=== PATIENT | male | born 1955 | race Caucasian/White ===

== ENCOUNTER 2020-08-03 10:30 | Outpatient (REF) | payer MEDICARE, SELFPAY ==
[2020-08-03 11:34] LABS: Estimated Average Glucose 97 mg/dL
[2020-08-03 11:45] LABS: Alanine Aminotransferase 27 U/L (0-40); Albumin Level 4.2 g/dL (3.5-5.0); Alkaline Phosphatase 52 U/L (39-117); Aspartate Amino Transferase 21 U/L (5-37); Bilirubin Direct 0.2 mg/dL (0.0-0.5); Bilirubin Total 0.6 mg/dL (0.0-1.0); Cholesterol 181 mg/dL; Glucose Fasting 102 mg/dL (60-99); HDL Cholesterol 59 mg/dL; LDL Cholesterol Calculated 111 mg/dl; Total Protein 7.2 g/dL (6.5-8.0); Triglycerides 58 mg/dL
[2020-08-03 13:31] LABS: Reflex LDLD? No
== END 2020-08-03 10:31 | disposition home or self-care (01) ==
LOC: HO.LNP 10:30
PROVIDERS: Visit Provider Internal Medicine
DX: R73.03 Prediabetes (principal); E78.00 Pure hypercholesterolemia, unspecified
CPT/HCPCS: 80061; 80076; 82947; 83036

== ENCOUNTER 2021-02-08 10:30 | Outpatient (REF) | payer MEDICARE, SELFPAY ==
[2021-02-08 10:33] LABS: MANUAL DIFF FLAG NO
[2021-02-08 11:14] LABS: Basophils Absolute Auto 0.1 X10*3/uL (0.0-0.2); Basophils Percent Auto 1.3 % (0-2); Eosinophils Absolute Auto 0.8 X10*3/uL (0.0-0.4); Eosinophils Percent Auto 7.5 % (0-4); Hematocrit 48.7 % (42-52); Hemoglobin 16.8 g/dl (14.0-18.0); Imm Gran Abs Auto 0.05 X10*3/uL (0.00-0.03); Imm Gran Pct Auto 0.5 % (0.0-0.4); Lymphocytes Absolute Auto 1.8 X10*3/uL (1.2-4.9); Lymphocytes Percent Auto 17.5 % (20-40); Mean Corpuscular HGB Conc 34.5 g/dl (31.0-36.0); Mean Corpuscular Hemoglobin 32.4 pg (27.0-33.0); Mean Corpuscular Volume 93.8 fL (80-98); Mean Platelet Volume 9.7 fL (9.4-12.4); Monocytes Absolute Auto 1.2 X10*3/uL (0.1-1.2); Neutrophils Absolute Auto 6.1 X10*3/uL (2.0-8.3); Neutrophils Percent Auto 61.2 % (45-73); Platelet Count 258 X10*3/uL (160-400); Red Blood Count 5.19 X10*6/uL (4.60-5.80); Red Cell Distribution Width 11.4 % (11.0-16.0)
[2021-02-08 11:22] LABS: Estimated Average Glucose 97 mg/dL
[2021-02-08 11:31] LABS: Alanine Aminotransferase 35 U/L (0-40); Albumin Level 4.3 g/dL (3.5-5.0); Alkaline Phosphatase 54 U/L (39-117); Anion Gap 14 (12-20); Aspartate Amino Transferase 26 U/L (5-37); Bilirubin Total 1.1 mg/dL (0.0-1.0); Blood Urea Nitrogen 9 mg/dL (9-16); Calcium 9.5 mg/dL (8.4-10.2); Carbon Dioxide 25 mmol/L (22-29); Chloride 105 mmol/L (96-108); Cholesterol 231 mg/dL; Estimated Glomerular Filt Rate > 60; Glucose Fasting 125 mg/dL (60-99); HDL Cholesterol 69 mg/dL; LDL Cholesterol Calculated 153 mg/dl; Potassium 4.2 mmol/L (3.3-5.1); Sodium 140 mmol/L (135-145); Total Protein 7.3 g/dL (6.5-8.0); Triglycerides 49 mg/dL
[2021-02-08 11:43] LABS: Appearance Urine CLEAR; Color Urine YELLOW; Glucose Urine UA NEG (NEG); Leukocyte Esterase Urine NEG (NEG); Nitrite Urine NEG (NEG); Urine Blood TRACE (NEG); Urine Ketones 40 MG/DL (NEG); Urine Protein NEG (NEG-TRACE)
[2021-02-08 11:52] LABS: PSA,Total (Free>4and<10) 1.19 ng/mL (0.00-4.00)
[2021-02-08 12:02] LABS: Squamous Epithelial Cell Urine TRACE /LPF
[2021-02-08 12:03] LABS: RBC Urine 0 /HPF (0); WBC Urine 0 /HPF (0-4)
[2021-02-08 12:28] LABS: Creatinine Urine 208.14 mg/dL; Microalbum/Creatinine Ratio Ur 7.2 ug/mg cr
== END 2021-02-08 10:31 | disposition home or self-care (01) ==
LOC: HO.LNP 10:30
PROVIDERS: Visit Provider Internal Medicine
DX: Z12.5 Encounter for screening for malignant neoplasm of prostate (principal); R73.03 Prediabetes; E78.00 Pure hypercholesterolemia, unspecified; I10 Essential (primary) hypertension
CPT/HCPCS: 80053; 80061; 81001; 81003; 82043; 83036; 84153; 85025

== ENCOUNTER 2022-02-09 11:27 | Outpatient (REF) | payer MEDICARE, SELFPAY ==
[2022-02-09 11:32] LABS: MANUAL DIFF FLAG NO
[2022-02-09 11:48] LABS: Appearance Urine Clear; Color Urine Yellow; Glucose Urine UA Negative (Negative); Leukocyte Esterase Urine Negative (Negative); Nitrite Urine Negative (Negative); PH 6.5 (5.0-9.0); Specific Gravity - Urine 1.015 (1.005-1.025); Urine Blood Negative (Negative); Urine Ketones Trace mg/dL (Negative); Urine Protein Negative (Neg-Trace)
[2022-02-09 11:52] LABS: Bacteria Urine None Seen (None Seen); Hyaline Casts Urine 0-2 /LPF (0-2); RBC Urine 0-2 /HPF (0-2); Squamous Epithelial Cell Urine 0-2 /HPF (0-2); WBC Urine 0-5 /HPF (0-5)
[2022-02-09 11:54] LABS: Alanine Aminotransferase 33 U/L (0-40); Albumin Level 4.3 g/dL (3.5-5.0); Alkaline Phosphatase 49 U/L (39-117); Anion Gap 14 (12-20); Aspartate Amino Transferase 27 U/L (5-37); Bilirubin Total 1.1 mg/dL (0.0-1.0); Blood Urea Nitrogen 9 mg/dL (9-16); Calcium 9.2 mg/dL (8.4-10.2); Carbon Dioxide 26 mmol/L (22-29); Chloride 104 mmol/L (96-108); Cholesterol 228 mg/dL; Estimated Average Glucose 100 mg/dL; Estimated Glomerular Filt Rate > 60; Glucose Fasting 133 mg/dL (60-99); HDL Cholesterol 67 mg/dL; Hemoglobin A1c % 5.1 %; LDL Cholesterol Calculated 153 mg/dl; Potassium 3.8 mmol/L (3.3-5.1); Sodium 140 mmol/L (135-145); Total Protein 7.3 g/dL (6.5-8.0); Triglycerides 43 mg/dL
[2022-02-09 11:56] LABS: Basophils Absolute Auto 0.1 X10*3/uL (0.0-0.2); Basophils Percent Auto 1.1 % (0-2); Eosinophils Absolute Auto 0.7 X10*3/uL (0.0-0.4); Eosinophils Percent Auto 6.9 % (0-4); Hematocrit 46.8 % (42.0-52.0); Hemoglobin 16.5 g/dl (14.0-18.0); Imm Gran Abs Auto 0.04 X10*3/uL (0.00-0.03); Imm Gran Pct Auto 0.4 % (0.0-0.4); Lymphocytes Percent Auto 19.4 % (20-40); Mean Corpuscular HGB Conc 35.3 g/dl (31.0-36.0); Mean Corpuscular Hemoglobin 33.2 pg (27.0-33.0); Mean Corpuscular Volume 94.2 fL (80.0-98.0); Mean Platelet Volume 9.8 fL (9.4-12.4); Monocytes Absolute Auto 1.3 X10*3/uL (0.1-1.2); Monocytes Percent Auto 12.6 % (2-11); Neutrophils Absolute Auto 6.3 x10*3/uL (2.0-8.3); Neutrophils Percent Auto 59.6 % (45-73); Platelet Count 268 X10*3/uL (160-400); Red Blood Count 4.97 X10*6/uL (4.60-5.80); Red Cell Distribution Width 11.3 % (11.0-16.0); White Blood Count 10.5 X10*3/uL (4.8-10.8)
[2022-02-09 12:15] LABS: PSA,Total (Free>4and<10) 0.66 ng/mL (0.00-4.00)
[2022-02-09 13:21] LABS: Creatinine Urine 153.29 mg/dL; Microalbum/Creatinine Ratio Ur 6.5 ug/mg cr
== END 2022-02-09 11:28 | disposition home or self-care (01) ==
LOC: HO.LNP 11:27
PROVIDERS: Visit Provider Internal Medicine
DX: Z12.5 Encounter for screening for malignant neoplasm of prostate (principal); I10 Essential (primary) hypertension; E78.00 Pure hypercholesterolemia, unspecified; R73.03 Prediabetes
CPT/HCPCS: 80053; 80061; 81001; 82043; 83036; 84153; 85025

== ENCOUNTER 2023-02-13 11:59 | Outpatient (REF) | payer MEDICARE, SELFPAY | END 2023-02-13 12:00 | disposition home or self-care (01) | LOC: HO.LNP 11:59 | PROVIDERS: Visit Provider Internal Medicine | DX: Z12.5 Encounter for screening for malignant neoplasm of prostate (principal); I10 Essential (primary) hypertension; E78.00 Pure hypercholesterolemia, unspecified; R73.03 Prediabetes | CPT/HCPCS: 80053; 80061; 81001; 82043; 82570; 83036; 84153; 85025 ==

== ENCOUNTER 2023-03-15 12:06 | Outpatient (REF) | payer MEDICARE, SELFPAY ==
[2023-03-15 12:27] LABS: Appearance Urine Clear; Color Urine Yellow; Glucose Urine UA Negative (Negative); Leukocyte Esterase Urine Negative (Negative); Nitrite Urine Negative (Negative); Specific Gravity - Urine 1.015 (1.005-1.025); Urine Blood Negative (Negative); Urine Ketones 15 mg/dL (Negative); Urine Protein Negative (Neg-Trace)
[2023-03-15 12:30] LABS: Bacteria Urine None Seen (None Seen); Hyaline Casts Urine 0-2 /LPF (0-2); RBC Urine 0-2 /HPF (0-2); Squamous Epithelial Cell Urine 0-2 /HPF (0-2); WBC Urine 0-5 /HPF (0-5)
== END 2023-03-15 12:07 | disposition home or self-care (01) ==
LOC: HO.LNP 12:06
PROVIDERS: Visit Provider Internal Medicine
DX: R31.9 Hematuria, unspecified (principal)
CPT/HCPCS: 81001

== ENCOUNTER 2024-03-21 11:03 | Outpatient (REF) | payer MEDICARE, SELFPAY ==
[2024-03-21 11:06] LABS: MANUAL DIFF FLAG NO
[2024-03-21 11:28] LABS: Basophils Absolute Auto 0.1 X10*3/uL (0.0-0.2); Basophils Percent Auto 1.2 % (0-2); Eosinophils Absolute Auto 0.5 X10*3/uL (0.0-0.4); Eosinophils Percent Auto 5.1 % (0-4); Hematocrit 47.3 % (42.0-52.0); Hemoglobin 16.6 g/dl (14.0-18.0); Imm Gran Abs Auto 0.05 X10*3/uL (0.00-0.03); Imm Gran Pct Auto 0.5 % (0.0-0.4); Lymphocytes Absolute Auto 1.8 X10*3/uL (1.2-4.9); Lymphocytes Percent Auto 18.8 % (20-40); Mean Corpuscular HGB Conc 35.1 g/dl (31.0-36.0); Mean Corpuscular Hemoglobin 33.5 pg (27.0-33.0); Mean Corpuscular Volume 95.4 fL (80.0-98.0); Mean Platelet Volume 9.6 fL (9.4-12.4); Monocytes Absolute Auto 1.3 X10*3/uL (0.1-1.2); Monocytes Percent Auto 13.7 % (2-11); Neutrophils Absolute Auto 5.7 x10*3/uL (2.0-8.3); Neutrophils Percent Auto 60.7 % (45-73); Platelet Count 233 X10*3/uL (160-400); Red Blood Count 4.96 X10*6/uL (4.60-5.80); Red Cell Distribution Width 11.5 % (11.0-16.0); White Blood Count 9.3 X10*3/uL (4.8-10.8)
[2024-03-21 11:31] LABS: Appearance Urine Clear; Color Urine Yellow; Glucose Urine UA Negative (Negative); Leukocyte Esterase Urine Negative (Negative); Nitrite Urine Negative (Negative); PH 6.5 (5.0-9.0); Specific Gravity - Urine 1.015 (1.005-1.025); Urine Blood Negative (Negative); Urine Ketones 40 mg/dL (Negative); Urine Protein Negative (Neg-Trace)
[2024-03-21 11:39] LABS: Bacteria Urine None Seen (None Seen); Hyaline Casts Urine 0-2 /LPF (0-2); RBC Urine 0-2 /HPF (0-2); Squamous Epithelial Cell Urine 0-2 /HPF (0-2); WBC Urine 0-5 /HPF (0-5)
[2024-03-21 12:05] LABS: PSA,Total (Free>4and<10) 0.44 ng/mL (0.00-4.00)
[2024-03-21 12:09] LABS: Alanine Aminotransferase 31 U/L (0-40); Albumin Level 4.1 g/dL (3.5-5.0); Alkaline Phosphatase 50 U/L (39-117); Anion Gap 12 (12-20); Aspartate Amino Transferase 27 U/L (5-37); Bilirubin Total 1.1 mg/dL (0.0-1.0); Blood Urea Nitrogen 11 mg/dL (9-16); Calcium 9.5 mg/dL (8.4-10.2); Carbon Dioxide 26 mmol/L (22-29); Chloride 101 mmol/L (96-108); Cholesterol 225 mg/dL (<200); Estimated Glomerular Filt Rate > 60; Glucose Fasting 120 mg/dL (60-99); HDL Cholesterol 66 mg/dL (>40); LDL Cholesterol Calculated 146 mg/dL (<100); Potassium 3.8 mmol/L (3.3-5.1); Sodium 135 mmol/L (135-145); Total Protein 7.1 g/dL (6.5-8.0); Triglycerides 69 mg/dL (<150)
[2024-03-21 12:14] LABS: Estimated Average Glucose 103 mg/dL; Hemoglobin A1C 171.5869 umol/L; Hemoglobin A1c % 5.2 % (<6.0); Total Hemoglobin (HGBA1C) 5153.2918 umol/L
[2024-03-21 12:19] LABS: Microalbum/Creatinine Ratio Ur 4.4 ug/mg cr (<30)
== END 2024-03-21 11:04 | disposition home or self-care (01) ==
LOC: HO.LNP 11:03
PROVIDERS: Visit Provider Internal Medicine
DX: I10 Essential (primary) hypertension (principal); R73.09 Other abnormal glucose; E78.00 Pure hypercholesterolemia, unspecified; Z12.5 Encounter for screening for malignant neoplasm of prostate
CPT/HCPCS: 80053; 80061; 81001; 82043; 82570; 83036; 84153; 85025

== ENCOUNTER 2024-09-19 10:36 | Outpatient (REF) | payer MEDICARE, SELFPAY ==
--- OUTSIDE RECORDS SUMMARY | 2024-09-19 11:06 | XMS_ITS ---
Author Organization David Ayala MD Address [address] [place], [place] [id number] Care Team Providers [employer] Worker Name Role Phone David Ayala Primary Care Provider Results Component Value Reference Range Notes Complete Blood Count Auto Di ff Reviewed date:03/21/2024 12:48:24 PM Interpretation: Performing Lab:[facility], [address] [place] [phone] Notes/Report: White Blood Count 9.3 4.8-10.8 X10*3/uL Red Blood Count 4.96 4.60-5.80 X10*6/uL Hemoglobin 16.6 14.0-18.0 g/dl Hematocrit 47.3 42.0-52.0 % Mean Corpuscular Volume 95.4 80.0-98.0 fL Mean Corpuscular Hemoglobin 33.5 27.0-33.0 pg Mean Corpuscular HGB Conc 35.1 31.0-36.0 g/dl Red Cell Distribution Width 11.5 11.0-16.0 % Platelet Count 233 160-400 X10*3/uL Mean Platelet Volume 9.6 9.4-12.4 fL Neutrophils Percent Auto 60.7 45-73 % Imm Gran Pct Auto 0.5 0.0-0.4 % Lymphocytes Percent Auto 18.8 20-40 % Monocytes Percent Auto 13.7 2-11 % Eosinophils Percent Auto 5.1 0-4 % Basophils Percent Auto 1.2 0-2 % NRBC Pct Auto 0.0 0.0-0.2 /100WBC Neutrophils Absolute Auto 5.7 2.0-8.3 x10*3/u L Imm Gran Abs Auto 0.05 0.00-0.03 X10*3/uL Lymphocytes Absolute Auto 1.8 1.2-4.9 X10*3/u L Monocytes Absolute Auto 1.3 0.1-1.2 X10*3/uL Eosinophils Absolute Auto 0.5 0.0-0.4 X10*3/u L Basophils Absolute Auto 0.1 0.0-0.2 X10*3/uL NRBC Abs Auto 0.000 0.0-0.012 X10*3/uL Comprehensive [place]. Panel Fa st Reviewed date:03/21/2024 12:19:10 PM Interpretation: Performing Lab:[facility], [address] [place] [phone] Notes/Report: Sodium 135 135-145 mmol/L Potassium 3.8 3.3-5.1 mmol/L Chloride 101 96-108 mmol/L Carbon Dioxide 26 22-29 mmol/L Anion Gap 12 12-20 Blood Urea Nitrogen 11 9-16 mg/dL Creatinine 0.77 0.5-1.4 mg/dL Estimated Glomerular Filt Rate > 60 Chronic Kidney Disease: Estimated GFR < 60 mL/min/1.73m2 Severe Kidney Disease: Estimated GFR < 15 mL/min/1.73m2 Glucose Fasting 120 60-99 mg/dL A fasting glucose from 100-125 mg/dl is considered impaired (pre-diabetes). Calcium 9.5 8.4-10.2 mg/dL Bilirubin Total 1.1 0.0-1.0 mg/dL Aspartate Amino Transferase 27 5-37 U/L Alanine Aminotransferase 31 0-40 U/L Total Protein 7.1 6.5-8.0 g/dL Albumin Level 4.1 3.5-5.0 g/dL Alkaline Phosphatase 50 39-117 U/L Lipid Panel Reviewed date:03/21/2024 12:17:01 PM Interpretation: Performing Lab:[facility], [address] [place] [phone] Notes/Report: Triglycerides 69 <150 mg/dL Desirable Triglyceride: less than 150 mg/dL Borderline High Triglyceride 150-199 mg/dL High Triglyceride: 200-499 mg/dL Very High Triglyceride: greater than or equal to 5OO mg/dL Cholesterol 225 <200 mg/dL Desirable Cholesterol: less than 200 mg/dL Borderline High Cholesterol: 200-239 mg/dL High Cholesterol: greater than 239 mg/dL LDL Cholesterol Calculated 146 <100 mg/dL Desirable LDL: less than 100 mg/dL Near Optimal/Above Optimal LDL: 110-129 mg/dL Borderline High LDL: 130-159 mg/dL High LDL: 160-189 mg/dL Very High LDL: greater than or equal to 190 mg/dL HDL Cholesterol 66 >40 mg/dL Desirable HDL: greater than 40 mg/dL Note: This HDL assay may give artificially low results in patients with liver disease. PSA,Total (Free>4and<10) Reviewed date:03/21/2024 12:18:48 PM Interpretation: Performing Lab:[address] [phone] Notes/Report: PSA,Total (Free>4and<10) 0.44 0.00-4.00 ng/mL A Free PSA was not performed: The percentage of Free PSA can be used to enhance the differentiation of prostate cancer from benign prostatic disease in subjects whose PSA levels are between 4.0 and 10.0 ng/mL. For subjects whose PSA levels are below 4.0 or above 10.0 ng/mL, the risk of prostate cancer is determined on the basis of the PSA alone. Therefore the % Free PSA is recommended only for those subjects whose PSA levels are between 4.0 and 10.0 ng/mL. PSA methodology: Campuzano Alinity i Chemiluminescent Microparticle Immunoassay (CMIA) Microalbumin, Random Reviewed date:03/21/2024 12:48:31 PM Interpretation: Performing Lab:[facility], [address] [place] [phone] Notes/Report: Creatinine Urine 111.70 Microalbumin Urine 5.0 Microalbum/Creatinine Ratio Ur 4.4 <30 ug/mg cr Albumin/Creatinine Ratio Reference Ranges: Normal: < 30 ug/mg creatinine Microalbuminuria: 30 - 300 ug/mg creatinine Clinical Albuminuria: > 300 ug/mg creatinine Hemoglobin A1c Reviewed date:03/21/2024 12:17:35 PM Interpretation: Performing Lab:[facility], [address] [place] [phone] Notes/Report: Hemoglobin A1c % 5.2 <6.0 % Hemoglobin A1C Reference Range Adults: 4.8 - 6.0 % Non diabetic: < 6.0 % Goal: < 7.0 % Additional Action Suggested: > 8.0 % Note: Hemoglobin A1c results are invalid for patients with abnormal amounts of HbF. Blood transfusions may impact the HbA1c concentration in the patient sample. Estimated Average Glucose 103 eAG = Estimated average glucose which is %A1C expressed as average glucose, using the formula of the [id number] Average Glucose study (ADAG), Diabetes Care, Vol.31,#8, 2007 UA ClnCatch+Micro w/rflx Cul t Reviewed date:03/21/2024 12:48:51 PM Interpretation: Performing Lab:[facility], [address] [place] [phone] Notes/Report: Urine, Clean Catch Color Urine Yellow Appearance Urine Clear PH 6.5 5.0-9.0 Glucose Urine UA Negative Negative mg/dL Urine Blood Negative Negative Specific [place] - Urine 1.015 1.005-1.025 Urine Protein Negative Neg-Trace mg/dL Urine Ketones 40 Negative mg/dL Nitrite Urine Negative Negative Leukocyte Esterase Urine Negative Negative RBC Urine 0-2 0-2 /HPF WBC Urine 0-5 0-5 /HPF Squamous Epithelial Cell Urine 0-2 0-2 /HPF Bacteria Urine None Seen None Seen Hyaline Casts Urine 0-2 0-2 /LPF REASON FOR VISIT yearly fasting labs Immunizations Vaccine Route Administration Date Status Comme nts Fluarix Quadrivalent - 150 IM Intramuscular 03/21/2024 Adm inistered Encounters Encounter Location Date Provider Diagnosis David Ayala MD [address] [place] [address] [address] [place], [place] [phone] 03/21/2024 David Ayala Essential hypertensi on I10 ; Encounter for immunization Z23 ; Prediabetes R73.09 and Pure hypercholesterolemia E78.00 Assessments Encounter Date Diagnosis (ICD Code) Assessment Notes Treatment Notes Treatment Clinical Notes Section Notes 03/21/2024 Essential hypertensi on (ICD-10 - I10) 03/21/2024 Encounter for immunization (ICD-10 - Z23) 03/21/2024 Prediabetes (ICD-10 - R73.09) 03/21/2024 Pure hypercholesterolemia (ICD-10 - E78.00) Plan Of Treatment Next Appt Details Provider Name:David Myrick ier, 09/26/2024 01:30:00 PM, [address], [address], [place], [phone], Provider Name:David Myrick torrier, 03/23/2025 07:45:00 AM, [address] [facility], [address], [place], [phone], Provider Name:David Myrick torrier, 03/30/2025 02:30:00 PM, [address] [facility], [address], [place], [phone], Progress Notes * George BR[birth year]ODOB:[birth year] (69 yo M)Acc No.[id number]:03/21/2024 Progress Note Patient:?George BRISENO Provider:?David Ayala MD :1955???Age:68 Y???Sex:Male Luis e:03/21/2024 Address:[address] [place], [place] [phone] Subjective: * Chief Complaints: * ???1. Yearly fasting labs. * Medical History:? Objective: * Vitals:? Assessment: * Assessment: 1.?Encounter for immunizatio n - Z23 (Primary)???2.?Essential hypertension - I10???3.?Prediabetes - R73.09???4.?Pure hypercholesterolemia - E78.00??? Plan: * Treatment: 2.?Prediabetes?LAB: Complete Blood Count Auto Diff (Collection Date & Time - 03/21/2024 07:45 AM) ?LAB: Comprehensive [place]. Panel Fast (Collection Date & Time - 03/21/2024 07:45 AM) ?LAB: Lipid Panel (Collection Date & Time - 03/21/2024 07:45 AM) ?LAB: PSA,Total (Free>4and<10) (Collection Date & Time - 03/21/2024 07:45 AM) ?LAB: Microalbumin, Random (Collection Date & Time - 03/21/2024 07:45 AM) ?LAB: Hemoglobin A1c (Collection Date & Time - 03/21/2024 07:45 AM) ?LAB: UA ClnCatch+Micro w/rflx Cult (Collection Date & Time - 03/21/2024 07:45 AM) 3.?Pure hypercholesterolemia ?LAB: Complete Blood Count Auto Diff (Collection Date & Time - 03/21/2024 07:45 AM) ?LAB: Comprehensive [place]. Panel Fast (Collection Date & Time - 03/21/2024 07:45 AM) ?LAB: Lipid Panel (Collection Date & Time - 03/21/2024 07:45 AM) ?LAB: PSA,Total (Free>4and<10) (Collection Date & Time - 03/21/2024 07:45 AM) ?LAB: Microalbumin, Random (Collection Date & Time - 03/21/2024 07:45 AM) ?LAB: Hemoglobin A1c (Collection Date & Time - 03/21/2024 07:45 AM) ?LAB: UA ClnCatch+Micro w/rflx Cult (Collection Date & Time - 03/21/2024 07:45 AM) * Immunizations:? Fluarix Quadrivalent - 150 : 0.5 mL (Dose No:1) (Route: Intramuscular) given by Lori Hernandez , Office Staff on Left Deltoid * Procedure Codes:?84475 FLU V ACCINE NO PRESERV 3 & >, G0008 ADMN FLU VAC NO FEE SCHED SAME DAY, 01483 VENIPUNCT, ROUTINE* * * The named appointment provid er may or may not be the originator of this progress note, and it is not deemed complete until electronically signed by the appointment provider. Sign off status: Pending * Provider:?David Ayala MD Date:?1 05/21/2023 Generated for Raul sanders/Yolanda/eTransmitting on:?09/19/2024 11:05 AM EDT
--- OUTSIDE RECORDS SUMMARY | 2024-09-19 11:06 | XMS_ITS ---
Author Organization David Ayala MD Address [address] [place], [place] [id number] Care Team Providers Care Unhairer Name Role Phone David Ayala Primary Care Provider [phone] Allergies No Known Allergies Results Component Value Reference Range Notes Occult Blood, Stool, Guaiac Reviewed date:03/28/2024 01:22:25 PM Interpretation:Negative Performing Lab: Notes/Report: Negative Occult Blood, Stool, Guaiac Neg REASON FOR VISIT review labs Medications Medication SIG (Take, Route, Frequency, Duration) Notes Start Date End Date Status Ventolin HFA 108 (90 Base) MCG/ACT 2 puffs as needed Inhalation every 4 hrs for 30 days 02/10/2020 Active Social History Tobacco Use: Social History Observation Description Date Details (start date - stop date) Former Smoker NA - NA Tobacco Use/Smoking Question Answer Notes Patient is a former smoker How long has it been since y ou last smoked? > 10 years Additional Findings: Tobacco Non-User Fo rmer smoker, currently using no form of tobacco Alcohol Screen Question Answer Notes Did you have a drink contain ing alcohol in the past year? Yes How often did you have a dri nk containing alcohol in the past year? 2 to 4 times a month (2 points) How many drinks did you have on a typical day when you were drinking in the past year? 1 or 2 drinks (0 point) How often did you have 6 or more drinks on one occasion in the past year? Never (0 point) Points 2 Interpretation Negative Vital Signs Blood pressure systolic 140 mm Hg 03/28/20 24 Blood pressure diastolic 88 mm Hg 024 Height 67 in 03/28/2024 Weight 160 lbs 03/28/2024 BMI 25.06 kg/m2 03/28/2024 Encounters Encounter Location Date Provider Diagnosis David Ayala MD [address] [place] [address] [place] [id number] 03/28/2024 David Ayala Mild intermittent as thma without complication J45.20 ; Essential hypertension I10 ; Prediabetes R73.09 ; Pure hypercholesterolemia E78.00 ; Depression screening Z13.31 and Colon cancer screening Z12.11 Assessments Encounter Date Diagnosis (ICD Code) Assessment Notes Treatment Notes Treatment Clinical Notes Section Notes 03/28/2024 Mild intermittent as thma without complication (ICD-10 - J45.20) using inhaler occasionally. doing well, will continue current regiment 03/28/2024 Essential hypertensi on (ICD-10 - I10) well controlled on no meds, will continue to monitor 03/28/2024 Prediabetes (ICD-10 - R73.09) no need for medication at this time 03/28/2024 Pure hypercholesterolemia (ICD-10 - E78.00) labs reviewed, stable, will contiue current regiment 03/28/2024 Depression screening (ICD-10 - Z13.31) negative screen 03/28/2024 Colon cancer screeni ng (ICD-10 - Z12.11) guaiac negative Plan Of Treatment Treatment Notes Assessment Notes Mild intermittent asthma without complic ation using inhaler occasionally. doing well, will continue current regiment Essential hypertension well controlled o n no meds, will continue to monitor Prediabetes no need for medicati on at this time Pure hypercholesterolemia labs reviewed, stable, will contiue current regiment Depression screening negative screen Colon cancer screening guaiac negative Next Appt Details Follow Up: 6 Months, Reason: Provider Name:David rojas, 09/26/2024 01:30:00 PM, [address] [place] [address], [address] [place] [address], [phone], Provider Name:David rojas, 03/23/2025 07:45:00 AM, [address] [place] [address], [address] [place] [address], [phone], Provider Name:David rojas, 03/30/2025 02:30:00 PM, [address] [place] [address], [address], [phone], Progress Notes * George BR[birth year]ODOB:[birth year] (68 yo M)Acc No.[id number]:03/28/2024 Progress Notes Patient:?George Briseno Provider:?David Ayala MD :1955???Age:68 Y???Sex:Male Luis e:03/28/2024 Address:[address] [place], [id number] Subjective: * Chief Complaints: * ???Review labs * HPI: ???Depression Screening:?PHQ-9?Little interest or pleasure in doing things?Not at all,?Feeling down, depressed, or hopeless?Not at all,?Trouble falling or staying asleep, or sleeping too much?Not at all,?Feeling tired or having little energy?Not at all,?Poor appetite or overeating?Not at all,?Feeling bad about yourself or that you are a failure, or have let yourself or your family down?Not at all,?Trouble concentrating on things, such as reading the newspaper or watching television?Not at all,?Moving or speaking so slowly that other people could have noticed; or the opposite, being so fidgety or restless that you have been moving around a lot more than usual?Not at all,?Thoughts that you would be better off or of hurting yourself in some way?Not at all,?Total Score?0.?Interpretation and Intervention?Depression Screening Findings?Negative,?Follow-Up for Depression?: review of PHQ-9 found negative result, no follow-up needed.?Communication Needs:?Communication Needs?Does the patient have a hearing impairment?No,?Does the patient have a vision impairment??No,?Does the patient have a cognition impairment??No.?Fall Risk:?History?Have you had any falls with injury in the past year??No,?Have you had two or more falls in the past year??No.?SDOH Questions:?SDOH Questions?In the past year have you been worried about losing housing??No,?In the past year have you or any family members you live with been unable to get any of the following when it was really needed? Check all that apply:?None.?Symptom(s):? patient is a 68 yo male here fr visit with review of recent labs and follow up of chronic issues. has been busy with work. has ringing in ears. * ROS:?General/Constitutional:?Patient denies?fatigue , headache.?Change in appetite?denies.?Chills?denies.?Fever?denies.?Ophthalmologic:?Blurred vision?denies.?Discharge?denies.?Pain?denies.?ENT:?Patient denies?decreased sense of smell , any loss of taste , sore throat.?Decreased hearing?denies.?Sore throat?denies.?Swollen glands?denies.?Endocrine:?Cold intolerance?denies.?Excessive thirst?denies.?Heat intolerance?denies.?Weight loss?denies.?Respiratory:?Cough?denies.?Shortness of breath at rest?denies.?Shortness of breath with exertion?denies.?Wheezing?denies.?Cardiovascular:?Chest pain at rest?denies.?Chest pain with exertion?denies.?Irregular heartbeat?denies.?Shortness of breath?denies.?Gastrointestinal:?Abdominal pain?denies.?Change in bowel habits?denies.?Diarrhea?denies.?Nausea?denies.?Rectal bleeding?denies.?Vomiting?denies .?Genitourinary:?Blood in urine?denies.?Difficulty urinating?denies.?Frequent urination?denies.?Musculoskeletal:?Patient denies?muscle aches.?Painful joints?denies.?Weakness?denies.?Peripheral Vascular:?Patient denies?red and blue toes.?Skin:?Dry skin?denies.?Itching?denies.?Denies?Mole(s),? changes in moles, new moles or any lesions of concern.?Denies?Photosensitivity.?Rash?denies.?Neurologic:?Dizziness?denies.?Fainting?denies.?Headache?denies.? * Medical History:? * Surgical History:? * Hospitalization/Major Diagno stic Procedure:? * Family History:?Father: dece ased 62 yrs, Cardiac, diagnosed with COPD, Hypertension.?Mother: 86 yrs, colon cancer, diagnosed with Cancer.?1 brother(s) , 1 sister(s) . 1 son(s) . .? Father-Cardiac Mother- colon cancer, Denies mental health/substance abuse family history, Denies mental health/substance abuse family history, Denies mental health/substance abuse family history, No pertinent family medical history. * Social History:?Tobacco Use:?Tobacco Use/Smoking?Patient is a?former smoker,?How long has it been since you last smoked??> 10 years,?Additional Findings: Tobacco Non-User?Former smoker, currently using no form of tobacco.?Drugs/Alcohol:?Alcohol Screen?Did you have a drink containing alcohol in the past year??Yes,?How often did you have a drink containing alcohol in the past year??2 to 4 times a month (2 points),?How many drinks did you have on a typical day when you were drinking in the past year??1 or 2 drinks (0 point),?How often did you have 6 or more drinks on one occasion in the past year??Never (0 point),?Points?2,?Interpretation?Negative.?Miscellaneous:?Caffeine: yes, frequency:,, 3-4 cups per day. Children: yes. no Community involvements. Exercise: yes, 3-4 times per week walks around the neighborhood. Home smoke detector use: yes. Housing: owning. Living with: alone. Marital status: . Occupation: unemployed. Pets: dogs. no Travel outside of the [place]. * Medications:?TakingVentolin HFA 108 (90 Base) MCG/ACT Aerosol Solution 2 puffs as needed Inhalation every 4 hrsMedication List reviewed and reconciled with the patientTaking Ventolin HFA 108 (90 Base) MCG/ACT Aerosol Solution 2 puffs as needed Inhalation every 4 hrsMedication List reviewed and reconciled with the patient * Allergies:?N.K.D.A.yes[Aller gies Verified] Objective: * Vitals:?Ht: 67, Wt:160, BMI: 25.06, BP:140/88, Wt-k.57. * ???Past Orders: ???Lab:Lipid Panel (Order Da 03/21/2024) (Collection Date - 03/21/2024) ? Value Reference Range ?Triglycerides 69 <150 - mg/dL ?Cholesterol 225 H <200 - m g/dL ?LDL Cholesterol Calculated 146 H <100 - mg/dL ?HDL Cholesterol 66 >40 - mg/dL ???Lab:PSA,Total (Free>4and< 10) (Order Date - 03/21/2024) (Collection Date - 03/21/2024) ? Value Reference Range ?PSA,Total (Free>4and<10) 0.44 0.00-4.00 - ng/mL ???Lab:Microalbumin, Random (Order Date - 03/21/2024) (Collection Date - 03/21/2024) ? Value Reference Range ?Creatinine Urine 111.70 - m g/dL ?Microalbumin Urine 5.0 - mg/L ?Microalbum Creatinine Ratio Ur 4.4 <30 - ug/mg cr ???Lab:Hemoglobin A1c (Order Date - 03/21/2024) (Collection Date - 03/21/2024) ? Value Reference Range ?Hemoglobin A1c % 5.2 <6. 0 - % ?Estimated Average Glucose 103 - mg/dL ???Lab:Complete Blood Count Auto Diff (Order Date - 03/21/2024) (Collection Date - 03/21/2024) ? Value Reference Range ?White Blood Count 9.3 4. 8-10.8 - X10*3/uL ?Red Blood Count 4.96 4.60 -5.80 - X10*6/uL ?Hemoglobin 16.6 14.0-18.0 - g/dl ?Hematocrit 47.3 42.0-52.0 - % ?Mean Corpuscular Volume 95.4 80.0-98.0 - fL ?Mean Corpuscular Hemoglobin 33.5 H 27.0-33.0 - pg ?Mean Corpuscular HGB Conc 35.1 31.0-36.0 - g/dl ?Red Cell Distribution Width 11.5 11.0-16.0 - % ?Platelet Count 233 160-4 00 - X10*3/uL ?Mean Platelet Volume 9.6 9.4-12.4 - fL ?Neutrophils Percent Auto 60.7 45-73 - % ?Imm Gran Pct Auto 0.5 H 0. 0-0.4 - % ?Lymphocytes Percent Auto 18.8 L 20-40 - % ?Monocytes Percent Auto 13.7 H 2-11 - % ?Eosinophils Percent Auto 5.1 H 0-4 - % ?Basophils Percent Auto 1.2 0-2 - % ?NRBC Pct Auto 0.0 0.0-0. 2 - /100WBC ?Neutrophils Absolute Auto 5.7 2.0-8.3 - x10*3/uL ?Imm Gran Abs Auto 0.05 H 0. 00-0.03 - X10*3/uL ?Lymphocytes Absolute Auto 1.8 1.2-4.9 - X10*3/uL ?Monocytes Absolute Auto 1.3 H 0.1-1.2 - X10*3/uL ?Eosinophils Absolute Auto 0.5 H 0.0-0.4 - X10*3/uL ?Basophils Absolute Auto 0.1 0.0-0.2 - X10*3/uL ?NRBC Abs Auto 0.000 0.0-0. 012 - X10*3/uL ???Lab:UA ClnCatch+Micro w/r flx Cult (Order Date - 03/21/2024) (Collection Date - 03/21/2024) ? Value Reference Range ?Color Urine Yellow - ?Appearance Urine Clear - ?PH 6.5 5.0-9.0 - ?Glucose Urine UA Negative Neg ative - mg/dL ?Urine Blood Negative Negative - ?Specific [place] - Urine 1.015 1.005-1.025 - ?Urine Protein Negative Neg-Tr clary - mg/dL ?Urine Ketones 40 Negati ve - mg/dL ?Nitrite Urine Negative Negati ve - ?Leukocyte Esterase Urine Negative Negative - ?RBC Urine 0-2 0-2 - /HPF ?WBC Urine 0-5 0-5 - /HPF ?Squamous Epithelial Cell Urine 0-2 0-2 - /HPF ?Bacteria Urine None Seen None Seen - ?Hyaline Casts Urine 0-2 0-2 - /LPF ???Lab:Comprehensive [place]. [place] leodan Fast (Order Date - 03/21/2024) (Collection Date - 03/21/2024) ? Value Reference Range ?Sodium 135 135-145 - mmo l/L ?Bilirubin Total 1.1 H 0.0- 1.0 - mg/dL ?Aspartate Amino Transferase 27 5-37 - U/L ?Alanine Aminotransferase 31 0-40 - U/L ?Total Protein 7.1 6.5-8. 0 - g/dL ?Albumin Level 4.1 3.5-5. 0 - g/dL ?Alkaline Phosphatase 50 39-117 - U/L ?Potassium 3.8 3.3-5.1 - mmol/L ?Chloride 101 96-108 - mm ol/L ?Carbon Dioxide 26 22-29 - mmol/L ?Anion Gap 12 12-20 - ?Blood Urea Nitrogen 11 9-16 - mg/dL ?Creatinine 0.77 0.5-1.4 - mg/dL ?Estimated Glomerular Filt Rate > 60 - ?Glucose Fasting 120 H 60-9 9 - mg/dL ?Calcium 9.5 8.4-10.2 - m g/dL * Examination: ???General Examination: ?GENERAL APPEARANCE:?well developed, well nourished, in no acute distress.?HEAD:?normocephalic, atraumatic.?EYES:?pupils equal, round, reactive to light and accommodation, sclera non-icteric.?EARS:?normal.?ORAL CAVITY:?mucosa moist.?THROAT:?clear.?NECK/THYROID:?neck supple, full range of motion, no cervical lymphadenopathy, no bruits.?SKIN:?warm and dry, no suspicious lesions.?HEART:?regular rate and rhythm, S1, S2 normal, no murmurs.?LUNGS:?clear to auscultation bilaterally.?ABDOMEN:?soft, nontender, nondistended, bowel sounds present, normal, no organomegaly , no masses palpable.?RECTAL EXAM:?normal tone, no external hemorrhoids, no masses palpable, prostate normal, stool guaiac negative.?MALE GENITOURINARY:?circumcised , no penile lesions or discharge , no testicular mass , testes descended bilaterally.?EXTREMITIES:?no clubbing, cyanosis, or edema.?NEUROLOGIC:?nonfocal, motor strength normal upper and lower extremities, sensory exam intact.? Assessment: * Assessment: 1.?Mild intermittent asthma without complication - J45.20 (Primary)?2.?Essential hypertension - I10?3.?Prediabetes - R73.09?4.?Pure hypercholesterolemia - E78.00?5.?Depression screening - Z13.31?6.?Colon cancer screening - Z12.11? Plan: * Treatment: 2.?Essential hypertension? Notes: well controlled on no meds, will continue to monitor?? 3.?Prediabetes? Notes: no need for medication at this time?? 4.?Pure hypercholesterolemia ? Notes: labs reviewed, stable, will contiue current regiment?? 5.?Depression screening? Notes: negative screen?? 6.?Colon cancer screening?LAB: Occult Blood, Stool, Guaiac?Negative ? Value Reference Range ?Occult Blood, Stool, Guaiac Neg Notes: guaiac negative?? * Procedure Codes:?49686 TEST FOR BLOOD, FECES * Follow Up:?6 Months * * Sign off status: Completed true * Provider:?David Ayala MD Date:?1 05/28/2023 Generated for Raul sanders/Yolanda/Francismitting on:?09/19/2024 11:05 AM EDT History and Physical Notes * HPI (History of Present Illness) Category Sub-Category Detail Notes Category Not es Symptom(s) patient is a 68 yo male here fr visit with review of recent labs and follow up of chronic issues. has been busy with work. has ringing in ears. Depression Screening PHQ-9 Little inte rest or pleasure in doing things: Not at all Feeling down, depressed, or hopeless: No t at all Trouble falling or staying asleep, or sl eeping too much: Not at all Feeling tired or having little energy: N ot at all Poor appetite or overeating: Not at all Feeling bad about yourself o r that you are a failure, or have let yourself or your family down: Not at all Trouble concentrating on thi ngs, such as reading the newspaper or watching television: Not at all Moving or speaking so slowly that other people could have noticed; or the opposite, being so fidgety or restless that you have been moving around a lot more than usual: Not at all Thoughts that you would be b dedrick off or of hurting yourself in some way: Not at all Total Score: 0 Interpretation and Intervention Depression Rigoberto frey Findings: Negative Follow-Up for Depression: : review of PH Q-9 found negative result, no follow-up needed SDOH Questions SDOH Questions In the past year have you been worried about losing housing?: No In the past year have you or any family members you live with been unable to get any of the following when it was really needed? Check all that apply:: None Fall Risk History Have you had any falls with injury i n the past year?: No Have you had two or more falls in the year?: No Communication Needs Communication Needs Does the patient have a hearing impairment: No Does the patient have a vision impairmen t?: No Does the patient have a cognition impair ment?: No Examination Category Sub-Category Detail Notes Category Not es General Examination GENERAL APPEARANCE: well dev eloped, well nourished, in no acute distress HEAD: normocephalic, atrau matic EYES: pupils equal, round, reactive to light and accommodation, sclera non-icteric EARS: normal THROAT: clear NECK/THYROID: neck supple, full ra nge of motion, no cervical lymphadenopathy, no bruits HEART: regular rate and rhy thm, S1, S2 normal, no murmurs LUNGS: clear to auscultatio n bilaterally ABDOMEN: soft, nontender, non distended, bowel sounds present, normal, no organomegaly , no masses palpable NEUROLOGIC: nonfocal, motor stre ngth normal upper and lower extremities, sensory exam intact SKIN: warm and dry, no jorden picious lesions EXTREMITIES: no clubbing, cyanosi s, or edema MALE GENITOURINARY: circumcised , no pen ile lesions or discharge , no testicular mass , testes descended bilaterally RECTAL EXAM: normal tone, no exte rnal hemorrhoids, no masses palpable, prostate normal, stool guaiac negative ORAL CAVITY: mucosa moist
--- OUTSIDE RECORDS SUMMARY | 2024-09-19 11:06 | XMS_ITS | Patient Health Record ---
Author Organization David Ayala MD Address [address] [place], [place] [id number] Care Team Providers Care Gifted Teacher Name Role Phone David Ayala Primary Care Provider Allergies No Known Allergies Results Component Value Reference Range Notes Complete Blood Count Auto Di ff Reviewed date:03/21/2024 12:48:24 PM Interpretation: Performing Lab:[facility], [address] [place] [phone] Notes/Report: White Blood Count 9.3 4.8-10.8 X10*3/uL [...] NRBC Abs Auto 0.000 0.0-0.012 X10*3/uL Comprehensive [place]. Panel Fa st Reviewed date:03/21/2024 12:19:10 PM Interpretation: Performing Lab:[facility], [address] [place] [phone] Notes/Report: Sodium 135 135-145 mmol/L Potassium 3.8 [...] Panel Reviewed date:03/21/2024 12:17:01 PM Interpretation: Performing Lab:[facility], [address] [place] [phone] Notes/Report: Triglycerides 69 <150 mg/dL Desirable Triglyceride: [...] (Free>4and<10) Reviewed date:03/21/2024 12:18:48 PM Interpretation: Performing Lab:[address] [phone] Notes/Report: PSA,Total (Free>4and<10) 0.44 0.00-4.00 ng/mL A [...] Random Reviewed date:03/21/2024 12:48:31 PM Interpretation: Performing Lab:[facility], [address] [place] [phone] Notes/Report: Creatinine Urine 111.70 Microalbumin Urine 5.0 Microalbum/Creatinine Ratio Ur 4.4 <30 ug/mg cr Albumin/Creatinine Ratio Reference Ranges: Normal: < 30 ug/mg creatinine Microalbuminuria: 30 - 300 ug/mg creatinine Clinical Albuminuria: > 300 ug/mg creatinine Hemoglobin A1c Reviewed date:03/21/2024 12:17:35 PM Interpretation: Performing Lab:[facility], [address] [place] [phone] Notes/Report: Hemoglobin A1c % 5.2 <6.0 % [...] average glucose, using the formula of the M7F-Bpcmnkd Average Glucose study (ADAG), Diabetes Care, Vol.31,#8, Dec. 2007 UA ClnCatch+Micro w/rflx Cul t Reviewed date:03/21/2024 12:48:51 PM Interpretation: Performing Lab:[facility], [address] [place] [phone] Notes/Report: Urine, Clean Catch Color Urine Yellow Appearance Urine Clear PH 6.5 5.0-9.0 Glucose Urine UA Negative Negative mg/dL Urine Blood Negative Negative Specific [place] - Urine 1.015 1.005-1.025 Urine Protein Negative Neg-Trace mg/dL Urine Ketones 40 Negative mg/dL Nitrite Urine Negative Negative Leukocyte Esterase Urine Negative Negative RBC Urine 0-2 0-2 /HPF WBC Urine 0-5 0-5 /HPF Squamous Epithelial Cell Urine 0-2 0-2 /HPF Bacteria Urine None Seen None Seen Hyaline Casts Urine 0-2 0-2 /LPF Occult Blood, Stool, Guaiac Reviewed date:03/28/2024 01:22:25 PM Interpretation:Negative Performing Lab: Notes/Report: Negative Occult Blood, Stool, Guaiac Neg Hold Gold (Not yet reviewed by provider) Interpretation: Performing Lab:[facility], [address] [place] [phone] Notes/Report: Hold Gold See Note Specimen held untested for 24 hours; Call to request Chemistry testing. Reason For Referral No Information Medications Medication SIG (Take, Route, Frequency, Duration) Notes Start Date End Date Status Ventolin HFA 108 (90 Base) MCG/ACT 2 puffs as needed Inhalation every 4 hrs for 30 days 02/10/2020 Active Immunizations Vaccine Route Administration Date Status Comme nts Flu Vaccine IM Intramuscular 02/28/2011 Administered Flu Vaccine IM Intramuscular 01/16/2012 Administered Flu Vaccine IM Intramuscular 01/21/2013 Administered Flu Vaccine IM Intramuscular 02/23/2014 Administered Prevnar 13 IM Intramuscular 09/04/2014 Administered Fluarix Quadrivalent IM Intramuscular 02/15/2016 Administe red Fluarix Quadrivalent IM Intramuscular 04/09/2017 Administe red Fluarix Quadrivalent IM Intramuscular 04/09/2018 Administe red Fluarix Quadrivalent IM Intramuscular 05/13/2019 Administe red Fluarix Quadrivalent IM Intramuscular 02/12/2020 Administe red Fluarix Quadrivalent IM Intramuscular 02/08/2021 Administe red SARS-COV-2 Moderna Unknown 11/27/2020 Administered SARS-COV-2 Moderna Unknown 12/25/2020 Administered Fluarix Quadrivalent IM Intramuscular 02/09/2022 Administe red Fluarix Quadrivalent Unknown 02/09/2022 Administered Fluarix Quadrivalent IM Intramuscular 02/13/2023 Administe red Fluarix Quadrivalent - 150 IM Intramuscular 03/21/2024 Adm inistered PPSV23 (Pnemovax) Unknown 03/02/2014 Refused PPSV23 (Pnemovax) Unknown 10/18/2017 Refused Social History Tobacco Use: Social History Observation [...] Never (0 point) Points 2 Interpretation Negative Problems Problem Type SNOMED Code ICD Code Onset Dates Problem Status W/U Status Risk Notes Problem 304891183 Tubular adenoma of colon (D12.6) Active confirmed Problem 69230199 Essential hypert ension (I10) Active confirmed Problem 512643333 Mild intermitten t asthma without complication (J45.20) Active confirmed Problem 1474159 Prediabetes (R73.09) Active confirmed Problem 740391878 Pure hypercholesterolemia (E78.00) Active confirmed Vital Signs Blood pressure diastolic 88 mm Hg 03/28/2024 Height 67 in 03/28/2024 Blood pressure systolic 140 mm Hg 03/28/2024 Weight 160 lbs 03/28/2024 BMI 25.06 kg/m2 03/28/2024 Encounters Encounter Location Date Provider Diagnosis David Ayala MD [address] [place] [phone] 03/21/2024 David Ayala Essential hypertensi on I10 ; Encounter for immunization Z23 ; Prediabetes R73.09 and Pure hypercholesterolemia E78.00 David Ayala MD [address] [place] [phone] 09/19/2024 David Ayala Prediabetes R73.09 a nd Pure hypercholesterolemia E78.00 David Ayala MD [address] [place] [phone] 03/28/2024 David Ayala Mild intermittent as thma without complication J45.20 ; Essential hypertension I10 ; Prediabetes R73.09 ; Pure hypercholesterolemia E78.00 ; Depression screening Z13.31 and Colon cancer screening Z12.11 David Ayala MD [address] [place] [phone] 11/13/2023 David Ayala Mild intermittent as thma without complication J45.20 Assessments Encounter Date Diagnosis (ICD Code) Assessment Notes Treatment Notes Treatment Clinical Notes Section Notes 03/21/2024 Essential hypertensi on (ICD-10 - I10) 03/21/2024 Encounter for immunization (ICD-10 - Z23) 09/19/2024 Prediabetes (ICD-10 - R73.09) 03/28/2024 Mild intermittent as thma without complication (ICD-10 - J45.20) using inhaler occasionally. doing well, will continue current regiment 03/28/2024 Essential hypertensi on (ICD-10 - I10) well controlled on no meds, will continue to monitor 11/13/2023 Mild intermittent as thma without complication (ICD-10 - J45.20) 03/21/2024 Prediabetes (ICD-10 - R73.09) 09/19/2024 Pure hypercholesterolemia (ICD-10 - E78.00) 03/28/2024 Prediabetes (ICD-10 - R73.09) no need for medication at this time 03/21/2024 Pure hypercholesterolemia (ICD-10 - E78.00) 03/28/2024 Pure hypercholesterolemia (ICD-10 - E78.00) labs reviewed, stable, will contiue current regiment 03/28/2024 Depression screening (ICD-10 - Z13.31) negative screen 03/28/2024 Colon cancer screeni ng (ICD-10 - Z12.11) guaiac negative Plan Of Treatment Pending Test Test Name Order Date Electrocardiogram (EKG) 09/17/2015 Electrocardiogram (EKG) 10/05/2016 Electrocardiogram (EKG) 10/18/2017 Electrocardiogram (EKG) 10/31/2018 Liver Panel 09/19/2024 Glucose Fasting 09/19/2024 Lipid Panel with Reflex 09/19/2024 Hold Gold 09/19/2024 Hemoglobin A1c 09/19/2024 Next Appt Details Provider Name:David brownleer, 09/26/2024 01:30:00 PM, [address] [place] [address], [address], [phone], Provider Name:David Myrick ier, 03/23/2025 07:45:00 AM, [address] [place] [address], [address], [phone], Provider Name:David brownleer, 03/30/2025 02:30:00 PM, [address] [place] [address], [address], [phone], Insurance Providers Payer Name Payer Address Payer Phone Subscriber Number Group Number Insured Name Patient Relationship to Insured Coverage Start Date Coverage End Date [employer] [address] [place] [address] [id number] George Valdivia Self - patient is the insured Medical (General) History Medical History History ICD Code 12/24/2012 Colonoscopy repeat 5 years; colonoscopy done 05/06/[address] High - repeat 5 years Dysthymia F34.1 Dysthymia
--- OUTSIDE RECORDS SUMMARY | 2024-09-19 11:06 | XMS_ITS ---
Author Organization David Ayala MD Address [address] [place] [phone] Care Team Providers Care Adjuster Electrical Contacts Name Role Phone David Ayala Primary Care Provider [phone] REASON FOR VISIT fasting lipids Encounters Encounter Location Date Provider Diagnosis David Ayala MD [address] [place] [address] [place] [phone] 09/19/2024 David Ayala Prediabetes R73.09 a nd Pure hypercholesterolemia E78.00 Assessments Encounter Date Diagnosis (ICD Code) Assessment Notes Treatment Notes Treatment Clinical Notes Section Notes 09/19/2024 Prediabetes (ICD-10 - R73.09) 09/19/2024 Pure hypercholesterolemia (ICD-10 - E78.00) Plan Of Treatment Pending Test Test Name Order Date Liver Panel 09/19/2024 Glucose Fasting 09/19/2024 Lipid Panel with Reflex 09/19/2024 Hemoglobin A1c 09/19/2024 Next Appt Details Provider Name:David rojas, 09/26/2024 01:30:00 PM, [address] [place] [address], [address], [phone], Provider Name:David rojas, 03/23/2025 07:45:00 AM, [address] [place] [address], [address], [phone], Provider Name:David rojas, 03/30/2025 02:30:00 PM, [address] [place] [address], [address], [phone], Progress Notes * Isaac BRISENO:[birth year] (69 yo M)Acc No.[id number]:09/19/2024 Progress Note Patient:?George BRISENO Provider:?David Ayala MD :1955???Age:69 Y???Sex:Male Luis e:09/19/2024 Address: [address] [facility] Subjective: * Chief Complaints: * ???1. Fasting lipids. * Medical History:? Objective: * Vitals:? Assessment: * Assessment: 1.?Prediabetes - R73.09 (Jessi clement)???2.?Pure hypercholesterolemia - E78.00??? Plan: * Treatment: 2.?Pure hypercholesterolemia ?LAB: Liver Panel ?LAB: Glucose Fasting ?LAB: Lipid Panel with Reflex ?LAB: Hemoglobin A1c * Procedure Codes:?80353 VENIP UNCT, ROUTINE* * * The named appointment provid er may or may not be the originator of this progress note, and it is not deemed complete until electronically signed by the appointment provider. Sign off status: Pending * Provider:?David Ayala MD Date:?0 09/19/2024 Generated for Raul sanders/Yolanda/Izabelaitting on:?09/19/2024 11:06 AM EDT
[2024-09-19 11:09] LABS: Estimated Average Glucose 103 mg/dL; Hemoglobin A1C 136.0581 umol/L; Hemoglobin A1c % 5.2 % (<6.0); Total Hemoglobin (HGBA1C) 4093.3145 umol/L
[2024-09-19 11:38] LABS: Alanine Aminotransferase 29 U/L (0-40); Albumin Level 4.1 g/dL (3.5-5.0); Alkaline Phosphatase 48 U/L (39-117); Aspartate Amino Transferase 29 U/L (5-37); Bilirubin Direct 0.3 mg/dL (0.0-0.5); Bilirubin Total 0.8 mg/dL (0.0-1.0); Cholesterol 208 mg/dL (<200); Glucose Fasting 131 mg/dL (60-99); HDL Cholesterol 70 mg/dL (>40); LDL Cholesterol Calculated 129 mg/dL (<100); Total Protein 7.3 g/dL (6.5-8.0); Triglycerides 49 mg/dL (<150)
[2024-09-19 13:58] LABS: Reflex LDLD? No
== END 2024-09-19 10:37 | disposition home or self-care (01) ==
LOC: HO.LNP 10:36
PROVIDERS: Visit Provider Internal Medicine
DX: R73.09 Other abnormal glucose (principal); E78.00 Pure hypercholesterolemia, unspecified
CPT/HCPCS: 80061; 80076; 82947; 83036

== ENCOUNTER 2025-03-24 07:45 | Outpatient (REF) | payer MEDICARE, SELFPAY ==
[2025-03-24 11:07] LABS: MANUAL DIFF FLAG NO
[2025-03-24 11:29] LABS: Appearance Urine Clear; Glucose Urine UA Negative (Negative); PH 7.5 (5.0-9.0); Specific Gravity - Urine 1.015 (1.005-1.025); White Blood Count 9.9 X10*3/uL (4.8-10.8)
[2025-03-24 11:30] LABS: Hematocrit 47.6 % (42.0-52.0); Hemoglobin 16.1 g/dl (14.0-18.0); Imm Gran Abs Auto 0.04 X10*3/uL (0.00-0.03); Imm Gran Pct Auto 0.4 % (0.0-0.4); Lymphocytes Absolute Auto 1.8 X10*3/uL (1.2-4.9); Mean Corpuscular HGB Conc 33.8 g/dl (31.0-36.0); Mean Corpuscular Hemoglobin 31.9 pg (27.0-33.0); Mean Corpuscular Volume 94.3 fL (80.0-98.0); NRBC Abs Auto 0.000 X10*3/uL (0.0-0.012); NRBC Pct Auto 0.0 /100WBC (0.0-0.2); Platelet Count 267 X10*3/uL (160-400); Red Blood Count 5.05 X10*6/uL (4.60-5.80)
[2025-03-24 11:39] LABS: Alanine Aminotransferase 16 U/L (0-40); Albumin Level 4.3 g/dL (3.5-5.0); Alkaline Phosphatase 45 U/L (39-117); Anion Gap 13 (12-20); Aspartate Amino Transferase 24 U/L (5-37); Blood Urea Nitrogen 9 mg/dL (9-16); Calcium 9.0 mg/dL (8.4-10.2); Carbon Dioxide 26 mmol/L (22-29); Chloride 104 mmol/L (96-108); Cholesterol 217 mg/dL (<200); Estimated Glomerular Filt Rate > 60; HDL Cholesterol 63 mg/dL (>40); Potassium 3.9 mmol/L (3.3-5.1); Sodium 139 mmol/L (135-145); Total Protein 6.9 g/dL (6.5-8.0); Triglycerides 61 mg/dL (<150)
[2025-03-24 12:04] LABS: PSA,Total (Free>4and<10) 0.77 ng/mL (0.00-4.00)
== END 2025-03-24 07:46 | disposition home or self-care (01) ==
LOC: HO.LNP 07:45
PROVIDERS: Visit Provider Internal Medicine
DX: I10 Essential (primary) hypertension (principal); E78.00 Pure hypercholesterolemia, unspecified; R73.09 Other abnormal glucose; Z12.5 Encounter for screening for malignant neoplasm of prostate
CPT/HCPCS: 80053; 80061; 81001; 82043; 82570; 83036; 84153; 85025